=== PATIENT | male | born 1950 | race Caucasian/White ===

== ENCOUNTER 2021-10-15 13:02 | Inpatient (IN) ==
[2021-10-15 16:32] LABS: INR 1.2; Prothrombin Time 13.4 Seconds (9.4-12.1)
[2021-10-15 16:35] LABS: Activated Partial Thrombo Time 29.5 Seconds (26.0-36.0)
[2021-10-15 16:44] LABS: Albumin 4.4 g/dL (3.5-5.7); Albumin/Globulin Ratio 1.6 (1.1-2.2); Bilirubin,Direct 2.6 mg/dL (0.0-0.2); Bilirubin,Total 3.6 mg/dL (0.3-1.0); Globulin 2.7 g/dL (2.4-3.5); Total Protein 7.1 g/dL (6.4-8.9)
[2021-10-15] MEDS ORDERED: Acetaminophen 325 MG TABLET PO PRN (17:18)
[2021-10-15] MEDS ORDERED: Ondansetron 4 MG/2 ML VIAL IVP PRN (17:18)
[2021-10-15] MEDS ORDERED: Naloxone 0.4 MG/ML INJ IVP PRN (17:18)
[2021-10-15] MEDS ORDERED: Dextrose Gel 15 GM/37.5 ML TUBE PO PRN ×2 (19:11)
[2021-10-15] MEDS ORDERED: D5% in Water 1,000 ML IVC PRN (19:11)
[2021-10-15] MEDS ORDERED: *HR* Dextrose 50 % in Water (Syg) 50 ML SYRINGE IVP PRN (19:11)
[2021-10-15] MEDS: 0.9 % Sodium Chloride 1,000 ML IVC SCH ×2 (20:21→22:40)
[2021-10-15] MEDS: Piperacillin/Tazobactam 3.375 GM in 0.9 % Sodium Chloride Mini Bag 100 ML IVPB SCH (20:21)
[2021-10-15] MEDS: Insulin LISPRO 300 UNITS/3 ML VIAL SUBQ SCH ×2 (20:31→21:47)
[2021-10-16] MEDS: Piperacillin/Tazobactam 3.375 GM in 0.9 % Sodium Chloride Mini Bag 100 ML IVPB SCH ×3 (04:27→21:24)
[2021-10-16] MEDS: *HR* Enoxaparin 40 MG/0.4 ML SYRINGE SQ SCH (06:36)
[2021-10-16] MEDS: Insulin LISPRO 300 UNITS/3 ML VIAL SUBQ SCH ×4 (08:44→21:25)
[2021-10-16] MEDS: 0.9 % Sodium Chloride 1,000 ML IVC SCH ×2 (09:04→21:25)
[2021-10-16 10:27] LABS: Basophils % 0.3 %; Hematocrit 36.6 % (37.5-50.1); Hemoglobin 11.9 g/dL (12.9-16.9); Immature Granulocytes % 0.6 % (0-4); Lymphocytes # 0.4 K/mcL (0.6-4.6); Lymphocytes % 3.3 %; Mean Corpuscular HGB Conc 32.5 g/dL (31.6-35.5); Mean Corpuscular Hemoglobin 31.4 pg (28.0-33.3); Mean Corpuscular Volume 96.6 fL (83.0-100.0); Mean Platelet Volume 11.1 fL (9.4-12.4); Monocytes # 0.6 K/mcL (0.0-1.3); Monocytes % 5.3 %; Platelet Count 135 K/mcL (140-400); Red Blood Count 3.79 M/mcL (4.19-5.50); Red Cell Distribution Width 13.6 % (11.5-14.5); Segmented Neutrophils % 90.5 %
[2021-10-16 10:35] LABS: INR 1.4; Neutrophils # 10.9 K/mcL (1.6-8.9); Prothrombin Time 15.2 Seconds (9.4-12.1)
[2021-10-16 10:36] LABS: Alanine Aminotransferase 249 Units/L (7-52); Albumin 3.7 g/dL (3.5-5.7); Albumin/Globulin Ratio 1.5 (1.1-2.2); Alkaline Phosphatase 238 Units/L (34-104); Aspartate Amino Transferase 122 Units/L (13-39); BUN/Creatinine Ratio 13 (6-26); Bilirubin,Direct 2.7 mg/dL (0.0-0.2); Bilirubin,Indirect 1.2 mg/dL (0.0-1.0); Bilirubin,Total 3.9 mg/dL (0.3-1.0); Blood Urea Nitrogen 16 mg/dL (8-23); Calcium 9.1 mg/dL (8.6-10.3); Carbon Dioxide 27 mEq/L (23-29); Chloride 98 mEq/L (98-107); Globulin 2.5 g/dL (2.4-3.5); Glucose 212 mg/dL (70-105); Magnesium 1.8 mg/dL (1.6-2.6); Osmolality,Calculated 283 (280-300); Potassium 3.8 mEq/L (3.5-5.1); Sodium 133 mEq/L (136-145); Total Protein 6.2 g/dL (6.4-8.9); eGFR For African Americans > 60 (> 60); eGFR For Non-African Americans 59 (> 60)
[2021-10-16 11:47] LABS: Platelet Estimate Slight Decrease (Normal)
[2021-10-16] MEDS: Cyanocobalamin (B-12) 1,000 MCG TABLET PO SCH (12:25)
[2021-10-16] MEDS ORDERED: Acetaminophen IV 500 MG/50 ML BAG IVPB ONE (15:44)
[2021-10-16] MEDS: Vancomycin 1,500 MG/265 ML IV.SOLN IVPB SCH (18:46)
[2021-10-16] MEDS: Mirtazapine 15 MG TABLET PO SCH (21:24)
[2021-10-17 02:16] LABS: Basophils % 0.2 %
[2021-10-17 02:18] LABS: Hematocrit 36.1 % (37.5-50.1); Immature Granulocytes % 1.1 % (0-4); Immature Platelets 6.9 % (1.1-6.1); Lymphocytes # 0.4 K/mcL (0.6-4.6); Lymphocytes % 3.2 %; Mean Corpuscular HGB Conc 33.2 g/dL (31.6-35.5); Mean Corpuscular Hemoglobin 31.8 pg (28.0-33.3); Mean Corpuscular Volume 95.8 fL (83.0-100.0); Mean Platelet Volume 11.3 fL (9.4-12.4); Monocytes # 0.6 K/mcL (0.0-1.3); Monocytes % 4.5 %; Neutrophils # 11.8 K/mcL (1.6-8.9); Platelet Count 124 K/mcL (140-400); Red Blood Count 3.77 M/mcL (4.19-5.50); Red Cell Distribution Width 13.5 % (11.5-14.5)
[2021-10-17 02:26] LABS: INR 1.3; Prothrombin Time 14.2 Seconds (9.4-12.1)
[2021-10-17 02:34] LABS: Alanine Aminotransferase 162 Units/L (7-52); Albumin 3.5 g/dL (3.5-5.7); Albumin/Globulin Ratio 1.3 (1.1-2.2); Alkaline Phosphatase 225 Units/L (34-104); Aspartate Amino Transferase 50 Units/L (13-39); BUN/Creatinine Ratio 12 (6-26); Bilirubin,Direct 3.1 mg/dL (0.0-0.2); Bilirubin,Indirect 1.7 mg/dL (0.0-1.0); Bilirubin,Total 4.8 mg/dL (0.3-1.0); Blood Urea Nitrogen 13 mg/dL (8-23); Calcium 8.7 mg/dL (8.6-10.3); Carbon Dioxide 23 mEq/L (23-29); Chloride 100 mEq/L (98-107); Globulin 2.6 g/dL (2.4-3.5); Glucose 185 mg/dL (70-105); Osmolality,Calculated 277 (280-300); Potassium 3.5 mEq/L (3.5-5.1); Sodium 131 mEq/L (136-145); Total Protein 6.1 g/dL (6.4-8.9); eGFR For African Americans > 60 (> 60); eGFR For Non-African Americans > 60 (> 60)
[2021-10-17] MEDS: Piperacillin/Tazobactam 3.375 GM in 0.9 % Sodium Chloride Mini Bag 100 ML IVPB SCH ×3 (04:36→20:03)
[2021-10-17] MEDS: 0.9 % Sodium Chloride 1,000 ML IVC SCH (07:20)
[2021-10-17] MEDS: Insulin LISPRO 300 UNITS/3 ML VIAL SUBQ SCH ×4 (07:41→20:04)
[2021-10-17] MEDS: Cyanocobalamin (B-12) 1,000 MCG TABLET PO SCH (09:35)
[2021-10-17] MEDS ORDERED: atenoloL 50 MG TABLET PO SCH (12:00)
[2021-10-17] MEDS ORDERED: amLODIPine 5 MG TABLET PO SCH (12:00)
[2021-10-17] MEDS ORDERED: *HR* FentaNYL (PF) 100 MCG/2 ML VIAL ONE (13:44)
[2021-10-17] MEDS ORDERED: *HR* FentaNYL (PF) 100 MCG/2 ML VIAL IVP ONE (13:46)
[2021-10-17] MEDS: atenoloL 50 MG TABLET PO SCH (16:59)
[2021-10-17] MEDS: Vancomycin 1,500 MG/265 ML IV.SOLN IVPB SCH (16:59)
[2021-10-17] MEDS: Morphine Sulfate 2 MG/ML SYRINGE IVP PRN ×2 (19:25→23:51)
[2021-10-17] MEDS: Mirtazapine 15 MG TABLET PO SCH (20:04)
[2021-10-17] MEDS: Magnesium Oxide 400 MG TABLET PO SCH (20:04)
[2021-10-18] MEDS: Piperacillin/Tazobactam 3.375 GM in 0.9 % Sodium Chloride Mini Bag 100 ML IVPB SCH ×3 (03:16→20:04)
[2021-10-18 05:19] LABS: Basophils % 0.3 %; Eosinophils # 0.1 K/mcL (0.0-0.6); Eosinophils % 1.3 %; Hematocrit 34.1 % (37.5-50.1); Hemoglobin 10.8 g/dL (12.9-16.9); Immature Granulocytes % 0.8 % (0-4); Lymphocytes # 0.6 K/mcL (0.6-4.6); Lymphocytes % 7.2 %; Mean Corpuscular HGB Conc 31.7 g/dL (31.6-35.5); Mean Corpuscular Hemoglobin 30.9 pg (28.0-33.3); Mean Corpuscular Volume 97.7 fL (83.0-100.0); Mean Platelet Volume 11.5 fL (9.4-12.4); Monocytes # 0.7 K/mcL (0.0-1.3); Monocytes % 7.7 %; Neutrophils # 7.2 K/mcL (1.6-8.9); Platelet Count 138 K/mcL (140-400); Red Blood Count 3.49 M/mcL (4.19-5.50); Red Cell Distribution Width 13.9 % (11.5-14.5); Segmented Neutrophils % 82.7 %; White Blood Count 8.8 K/mcL (4.3-11.1)
[2021-10-18 05:26] LABS: INR 1.1; Prothrombin Time 12.4 Seconds (9.4-12.1)
[2021-10-18 05:40] LABS: Alanine Aminotransferase 93 Units/L (7-52); Albumin 3.2 g/dL (3.5-5.7); Albumin/Globulin Ratio 1.2 (1.1-2.2); Alkaline Phosphatase 168 Units/L (34-104); Aspartate Amino Transferase 17 Units/L (13-39); BUN/Creatinine Ratio 14 (6-26); Bilirubin,Direct 0.8 mg/dL (0.0-0.2); Bilirubin,Indirect 0.7 mg/dL (0.0-1.0); Bilirubin,Total 1.5 mg/dL (0.3-1.0); Blood Urea Nitrogen 14 mg/dL (8-23); Calcium 8.4 mg/dL (8.6-10.3); Carbon Dioxide 26 mEq/L (23-29); Chloride 104 mEq/L (98-107); Globulin 2.7 g/dL (2.4-3.5); Glucose 112 mg/dL (70-105); Osmolality,Calculated 287 (280-300); Potassium 3.2 mEq/L (3.5-5.1); Sodium 138 mEq/L (136-145); Total Protein 5.9 g/dL (6.4-8.9); eGFR For African Americans > 60 (> 60); eGFR For Non-African Americans > 60 (> 60)
[2021-10-18] MEDS: Magnesium Oxide 400 MG TABLET PO SCH ×2 (07:50→20:06)
[2021-10-18] MEDS: Cyanocobalamin (B-12) 1,000 MCG TABLET PO SCH (07:50)
[2021-10-18] MEDS: Insulin LISPRO 300 UNITS/3 ML VIAL SUBQ SCH ×4 (07:51→20:09)
[2021-10-18] MEDS: atenoloL 50 MG TABLET PO SCH (07:53)
[2021-10-18 08:36] LABS: Hepatitis B Surface Antigen Nonreactive (Nonreactive)
[2021-10-18] MEDS ORDERED: *HR* FentaNYL PATCH 25 MCG PATCH TD PRN (09:00)
[2021-10-18 09:05] LABS: Hepatitis A Antibody IgM Nonreactive (Nonreactive)
[2021-10-18 09:06] LABS: Hepatitis B Core IgM Nonreactive (Nonreactive)
[2021-10-18 09:07] LABS: Hepatitis C Virus Antibody Nonreactive (Nonreactive)
[2021-10-18] MEDS: amLODIPine 5 MG TABLET PO SCH (12:00)
[2021-10-18] MEDS: Vancomycin 1,500 MG/265 ML IV.SOLN IVPB SCH (18:27)
[2021-10-18] MEDS: Mirtazapine 15 MG TABLET PO SCH (20:06)
[2021-10-19] MEDS: Morphine Sulfate 2 MG/ML SYRINGE IVP PRN (00:17)
[2021-10-19 01:27] LABS: Basophils % 0.5 %; Eosinophils # 0.2 K/mcL (0.0-0.6); Eosinophils % 2.7 %; Hematocrit 35.3 % (37.5-50.1); Hemoglobin 11.1 g/dL (12.9-16.9); Immature Granulocytes % 0.5 % (0-4); Lymphocytes # 0.8 K/mcL (0.6-4.6); Lymphocytes % 13.3 %; Mean Corpuscular HGB Conc 31.4 g/dL (31.6-35.5); Mean Corpuscular Hemoglobin 31.2 pg (28.0-33.3); Mean Corpuscular Volume 99.2 fL (83.0-100.0); Mean Platelet Volume 11.1 fL (9.4-12.4); Monocytes # 0.5 K/mcL (0.0-1.3); Monocytes % 8.4 %; Neutrophils # 4.7 K/mcL (1.6-8.9); Platelet Count 150 K/mcL (140-400); Red Blood Count 3.56 M/mcL (4.19-5.50); Red Cell Distribution Width 13.7 % (11.5-14.5); Segmented Neutrophils % 74.6 %; White Blood Count 6.3 K/mcL (4.3-11.1)
[2021-10-19 01:35] LABS: Prothrombin Time 11.6 Seconds (9.4-12.1)
[2021-10-19 01:42] LABS: Alanine Aminotransferase 73 Units/L (7-52); Albumin 3.3 g/dL (3.5-5.7); Albumin/Globulin Ratio 1.1 (1.1-2.2); Alkaline Phosphatase 150 Units/L (34-104); Aspartate Amino Transferase 18 Units/L (13-39); BUN/Creatinine Ratio 13 (6-26); Bilirubin,Direct 0.5 mg/dL (0.0-0.2); Bilirubin,Indirect 0.6 mg/dL (0.0-1.0); Bilirubin,Total 1.1 mg/dL (0.3-1.0); Blood Urea Nitrogen 14 mg/dL (8-23); Calcium 8.5 mg/dL (8.6-10.3); Carbon Dioxide 26 mEq/L (23-29); Chloride 106 mEq/L (98-107); Glucose 137 mg/dL (70-105); Osmolality,Calculated 287 (280-300); Potassium 3.7 mEq/L (3.5-5.1); Sodium 137 mEq/L (136-145); Total Protein 6.3 g/dL (6.4-8.9); eGFR For African Americans > 60 (> 60); eGFR For Non-African Americans > 60 (> 60)
[2021-10-19] MEDS: Piperacillin/Tazobactam 3.375 GM in 0.9 % Sodium Chloride Mini Bag 100 ML IVPB SCH ×3 (04:36→20:14)
[2021-10-19] MEDS ORDERED: Vancomycin 1,250 MG/262.5 ML IV.SOLN IVPB SCH ×2 (07:00→18:00)
[2021-10-19] MEDS: Cyanocobalamin (B-12) 1,000 MCG TABLET PO SCH (08:04)
[2021-10-19] MEDS: amLODIPine 5 MG TABLET PO SCH (08:04)
[2021-10-19] MEDS: Magnesium Oxide 400 MG TABLET PO SCH ×2 (08:04→20:14)
[2021-10-19] MEDS: atenoloL 50 MG TABLET PO SCH (08:04)
[2021-10-19] MEDS: Insulin LISPRO 300 UNITS/3 ML VIAL SUBQ SCH ×4 (08:04→20:14)
[2021-10-19] MEDS: Mirtazapine 15 MG TABLET PO SCH (20:14)
[2021-10-20] MEDS: Piperacillin/Tazobactam 3.375 GM in 0.9 % Sodium Chloride Mini Bag 100 ML IVPB SCH (04:03)
[2021-10-20 04:44] LABS: Basophils % 0.7 %; Eosinophils # 0.3 K/mcL (0.0-0.6); Eosinophils % 4.6 %; Hematocrit 33.9 % (37.5-50.1); Hemoglobin 10.7 g/dL (12.9-16.9); Immature Granulocytes % 0.2 % (0-4); Lymphocytes # 1.1 K/mcL (0.6-4.6); Lymphocytes % 18.5 %; Mean Corpuscular HGB Conc 31.6 g/dL (31.6-35.5); Mean Corpuscular Hemoglobin 30.9 pg (28.0-33.3); Mean Platelet Volume 10.7 fL (9.4-12.4); Monocytes # 0.6 K/mcL (0.0-1.3); Monocytes % 10.5 %; Platelet Count 141 K/mcL (140-400); Red Blood Count 3.46 M/mcL (4.19-5.50); Red Cell Distribution Width 13.9 % (11.5-14.5); Segmented Neutrophils % 65.5 %; White Blood Count 6.1 K/mcL (4.3-11.1)
[2021-10-20 05:02] LABS: Alanine Aminotransferase 56 Units/L (7-52); Albumin 3.2 g/dL (3.5-5.7); Albumin/Globulin Ratio 1.2 (1.1-2.2); Alkaline Phosphatase 139 Units/L (34-104); Aspartate Amino Transferase 20 Units/L (13-39); BUN/Creatinine Ratio 12 (6-26); Bilirubin,Direct 0.3 mg/dL (0.0-0.2); Bilirubin,Indirect 0.6 mg/dL (0.0-1.0); Bilirubin,Total 0.9 mg/dL (0.3-1.0); Blood Urea Nitrogen 11 mg/dL (8-23); Calcium 8.2 mg/dL (8.6-10.3); Carbon Dioxide 26 mEq/L (23-29); Chloride 105 mEq/L (98-107); Globulin 2.7 g/dL (2.4-3.5); Glucose 132 mg/dL (70-105); Magnesium 1.9 mg/dL (1.6-2.6); Osmolality,Calculated 285 (280-300); Potassium 3.4 mEq/L (3.5-5.1); Sodium 137 mEq/L (136-145); Total Protein 5.9 g/dL (6.4-8.9); eGFR For African Americans > 60 (> 60); eGFR For Non-African Americans > 60 (> 60)
[2021-10-20] MEDS ORDERED: Ertapenem 1,000 MG in 0.9 % Sodium Chloride Mini Bag 100 ML IVPB SCH (09:00)
[2021-10-20] MEDS: Cyanocobalamin (B-12) 1,000 MCG TABLET PO SCH (09:32)
[2021-10-20] MEDS: Magnesium Oxide 400 MG TABLET PO SCH (09:32)
[2021-10-20] MEDS: Insulin LISPRO 300 UNITS/3 ML VIAL SUBQ SCH (09:32)
[2021-10-20] MEDS: amLODIPine 5 MG TABLET PO SCH (09:32)
[2021-10-20] MEDS: *HR* Enoxaparin 40 MG/0.4 ML SYRINGE SQ SCH (09:32)
[2021-10-20] MEDS: atenoloL 50 MG TABLET PO SCH (09:32)
[2021-10-20 16:43] VITALS: BP 134/78; PULSE 83; TEMP 98.1; O2SAT 98
== END 2021-10-20 16:30 | disposition home health service (06) | DRG 871 ==
LOC: EMEROOARM 13:02 → 4WAOSI 13:02 → SUATTDRO 17:53 → 4WAOSI 18:01
PROVIDERS: ADMIT Pharmacist; ATTEND Pharmacist
PROC: IRFLUID (2021-10-17 12:00)

== ENCOUNTER 2021-11-29 11:18 | Inpatient (IN) ==
[2021-11-29] MEDS ORDERED: Naloxone 0.4 MG/ML INJ IVP PRN (15:01)
[2021-11-29] MEDS ORDERED: Ondansetron 4 MG/2 ML VIAL IVP PRN (15:01)
[2021-11-29] MEDS ORDERED: Acetaminophen 325 MG TABLET PO PRN (15:01)
[2021-11-29] MEDS ORDERED: *HR* OxyCODONE/APAP 5/325 TABLET PO PRN (15:03)
[2021-11-29] MEDS ORDERED: D5% in Water 1,000 ML IVC PRN (15:04)
[2021-11-29] MEDS ORDERED: Dextrose 4 GM Chewable Tablets PO PRN ×2 (15:04)
[2021-11-29] MEDS ORDERED: *HR* Dextrose 50 % in Water (Syg) 50 ML SYRINGE IVP PRN (15:04)
[2021-11-29] MEDS: Insulin LISPRO 300 UNITS/3 ML VIAL SUBQ SCH (17:44)
[2021-11-29 18:08] LABS: VBG HCO3 28 mEq/L (21-27); VBG PCO2 51 mmHg (41-51); VBG PH 7.35 pH Units (7.32-7.42); VBG PO2 30 mmHg (25-50)
[2021-11-29] MEDS: Mirtazapine 15 MG TABLET PO SCH (21:00)
[2021-11-30] MEDS ORDERED: *HR* LORazepam 1 MG TABLET PO ONE (00:07)
[2021-11-30 04:05] LABS: Basophils % 0.2 %; Hemoglobin 13.5 g/dL (12.9-16.9); Immature Granulocytes % 0.4 % (0-4); Mean Corpuscular Volume 94.2 fL (83.0-100.0)
[2021-11-30 04:07] LABS: Eosinophils # 0.1 K/mcL (0.0-0.6); Eosinophils % 2.4 %; Hematocrit 40.9 % (37.5-50.1); Immature Platelets 9.9 % (1.1-6.1); Lymphocytes # 0.7 K/mcL (0.6-4.6); Mean Corpuscular Hemoglobin 31.1 pg (28.0-33.3); Mean Platelet Volume 11.9 fL (9.4-12.4); Monocytes # 0.3 K/mcL (0.0-1.3); Monocytes % 5.7 %; Red Blood Count 4.34 M/mcL (4.19-5.50); Red Cell Distribution Width 13.8 % (11.5-14.5); Segmented Neutrophils % 75.3 %; White Blood Count 4.6 K/mcL (4.3-11.1)
[2021-11-30 04:10] LABS: Neutrophils # 3.5 K/mcL (1.6-8.9); Platelet Count 62 K/mcL (140-400)
[2021-11-30 04:28] LABS: BUN/Creatinine Ratio 23 (6-26); Blood Urea Nitrogen 26 mg/dL (8-23); Calcium 8.7 mg/dL (8.6-10.3); Carbon Dioxide 25 mEq/L (23-29); Chloride 98 mEq/L (98-107); Glucose 212 mg/dL (70-105); Magnesium 1.8 mg/dL (1.6-2.6); Osmolality,Calculated 285 (280-300); Phosphorous 2.3 mg/dL (2.7-4.5); Potassium 4.2 mEq/L (3.5-5.1); Sodium 132 mEq/L (136-145); eGFR For African Americans > 60 (> 60); eGFR For Non-African Americans > 60 (> 60)
[2021-11-30] MEDS: Cyanocobalamin (B-12) 1,000 MCG TABLET PO SCH (08:20)
[2021-11-30] MEDS: lisinopriL 10 MG TABLET PO SCH (08:21)
[2021-11-30] MEDS: LENVATINIB MESYLATE PO SCH (08:21)
[2021-11-30] MEDS: LENVATINIB MESYLATE 4 MG PO SCH (08:21)
[2021-11-30] MEDS: EVEROLIMUS 5 MG PO SCH (08:22)
[2021-11-30] MEDS: *HR* FentaNYL PATCH 25 MCG PATCH TD PRN (08:43)
[2021-11-30] MEDS ORDERED: Patient Taking Own Medication 1 EACH PO SCH (09:00)
[2021-11-30] MEDS ORDERED: LENVATINIB MESYLATE PO SCH (09:00)
[2021-11-30] MEDS: Insulin LISPRO 300 UNITS/3 ML VIAL SUBQ SCH ×3 (14:02→17:56)
[2021-11-30 17:21] LABS: Bacteria,Urine Few per hpf (None-Few); Bilirubin,Urine Negative (Negative); Blood,Urine Small (Negative); Clarity,Urine Clear (Clear); Color,Urine Yellow (Yellow); Glucose,Urine (UA) >=1000 mg/dL (Normal); Ketones,Urine Negative (Negative); Leukocyte Esterase,Urine Small (Negative); Mucus,Urine Few per lpf (None-Few); Nitrite,Urine Negative (Negative); Protein,Urine 100 mg/dL (Neg-Trace); Specific Gravity,Urine 1.019 (1.010-1.025); Urobilinogen,Urine Normal (Normal)
[2021-11-30] MEDS ORDERED: ChlorproMAZINE 25 MG/ML AMPUL IM ONE (17:47)
[2021-11-30] MEDS: Piperacillin/Tazobactam 3.375 GM in 0.9 % Sodium Chloride Mini Bag 100 ML IVPB SCH (17:57)
[2021-11-30] MEDS: Mirtazapine 15 MG TABLET PO SCH (21:06)
[2021-12-01] MEDS: Piperacillin/Tazobactam 3.375 GM in 0.9 % Sodium Chloride Mini Bag 100 ML IVPB SCH ×3 (01:54→17:26)
[2021-12-01 05:10] LABS: Hematocrit 40.6 % (37.5-50.1); Mean Corpuscular Volume 93.1 fL (83.0-100.0); Red Blood Count 4.36 M/mcL (4.19-5.50)
[2021-12-01 05:12] LABS: Basophils % 0.4 %; Eosinophils # 0.1 K/mcL (0.0-0.6); Eosinophils % 1.3 %; Hemoglobin 13.3 g/dL (12.9-16.9); Immature Granulocytes % 0.2 % (0-4); Immature Platelets 8.9 % (1.1-6.1); Lymphocytes # 0.5 K/mcL (0.6-4.6); Lymphocytes % 10.9 %; Mean Corpuscular HGB Conc 32.8 g/dL (31.6-35.5); Mean Corpuscular Hemoglobin 30.5 pg (28.0-33.3); Mean Platelet Volume 11.9 fL (9.4-12.4); Monocytes # 0.3 K/mcL (0.0-1.3); Monocytes % 5.4 %; Neutrophils # 3.9 K/mcL (1.6-8.9); Segmented Neutrophils % 81.8 %; White Blood Count 4.8 K/mcL (4.3-11.1)
[2021-12-01 05:15] LABS: Platelet Count 68 K/mcL (140-400)
[2021-12-01 05:28] LABS: Alanine Aminotransferase 36 Units/L (7-52); Albumin/Globulin Ratio 0.9 (1.1-2.2); Alkaline Phosphatase 123 Units/L (34-104); Aspartate Amino Transferase 34 Units/L (13-39); BUN/Creatinine Ratio 19 (6-26); Bilirubin,Direct 0.2 mg/dL (0.0-0.2); Bilirubin,Indirect 0.5 mg/dL (0.0-1.0); Bilirubin,Total 0.7 mg/dL (0.3-1.0); Blood Urea Nitrogen 23 mg/dL (8-23); Calcium 8.2 mg/dL (8.6-10.3); Carbon Dioxide 22 mEq/L (23-29); Chloride 100 mEq/L (98-107); Globulin 3.3 g/dL (2.4-3.5); Glucose 169 mg/dL (70-105); Magnesium 1.7 mg/dL (1.6-2.6); Osmolality,Calculated 290 (280-300); Potassium 3.8 mEq/L (3.5-5.1); Sodium 136 mEq/L (136-145); Total Protein 6.3 g/dL (6.4-8.9); eGFR For African Americans > 60 (> 60); eGFR For Non-African Americans 59 (> 60)
[2021-12-01] MEDS: *HR* Enoxaparin 40 MG/0.4 ML SYRINGE SQ SCH (06:03)
[2021-12-01] MEDS ORDERED: *HR* OxyCODONE Immed Rel 15 MG TABLET PO PRN (07:43)
[2021-12-01] MEDS ORDERED: Gabapentin 100 MG CAPSULE PO PRN (07:43)
[2021-12-01] MEDS: Cyanocobalamin (B-12) 1,000 MCG TABLET PO SCH (07:48)
[2021-12-01] MEDS: Insulin LISPRO 300 UNITS/3 ML VIAL SUBQ SCH ×3 (07:48→17:20)
[2021-12-01] MEDS: lisinopriL 10 MG TABLET PO SCH (07:48)
[2021-12-01] MEDS: LENVATINIB MESYLATE PO SCH (07:49)
[2021-12-01] MEDS: EVEROLIMUS 5 MG PO SCH (07:49)
[2021-12-01] MEDS: Magnesium Oxide 400 MG TABLET PO SCH (09:23)
[2021-12-01] MEDS: amLODIPine 5 MG TABLET PO SCH (09:23)
[2021-12-01] MEDS: Lactobacillus 1 EACH CAP.SPRINK PO SCH ×2 (09:23→21:17)
[2021-12-01] MEDS: atenoloL 50 MG TABLET PO SCH (09:23)
[2021-12-01] MEDS: LENVATINIB MESYLATE 4 MG PO SCH (09:24)
[2021-12-01] MEDS: chlorproMAZINE 25 MG TABLET PO SCH (18:36)
[2021-12-01] MEDS: Mirtazapine 15 MG TABLET PO SCH (21:17)
[2021-12-02] MEDS: Piperacillin/Tazobactam 3.375 GM in 0.9 % Sodium Chloride Mini Bag 100 ML IVPB SCH ×3 (02:37→17:18)
[2021-12-02 05:28] LABS: Basophils % 0.2 %; Immature Granulocytes % 0.5 % (0-4)
[2021-12-02 05:30] LABS: Hematocrit 43.1 % (37.5-50.1); Hemoglobin 14.2 g/dL (12.9-16.9); Immature Platelets 9.3 % (1.1-6.1); Lymphocytes # 0.6 K/mcL (0.6-4.6); Lymphocytes % 13.9 %; Mean Corpuscular HGB Conc 32.9 g/dL (31.6-35.5); Mean Corpuscular Hemoglobin 31.1 pg (28.0-33.3); Mean Corpuscular Volume 94.3 fL (83.0-100.0); Monocytes # 0.1 K/mcL (0.0-1.3); Monocytes % 1.9 %; Neutrophils # 3.4 K/mcL (1.6-8.9); Red Blood Count 4.57 M/mcL (4.19-5.50); Red Cell Distribution Width 13.4 % (11.5-14.5); Segmented Neutrophils % 83.5 %; White Blood Count 4.1 K/mcL (4.3-11.1)
[2021-12-02 05:39] LABS: Platelet Count 79 K/mcL (140-400)
[2021-12-02 05:47] LABS: Alanine Aminotransferase 42 Units/L (7-52); Albumin 3.3 g/dL (3.5-5.7); Albumin/Globulin Ratio 0.9 (1.1-2.2); Alkaline Phosphatase 134 Units/L (34-104); Aspartate Amino Transferase 30 Units/L (13-39); BUN/Creatinine Ratio 20 (6-26); Bilirubin,Direct 0.1 mg/dL (0.0-0.2); Bilirubin,Indirect 0.5 mg/dL (0.0-1.0); Bilirubin,Total 0.6 mg/dL (0.3-1.0); Blood Urea Nitrogen 25 mg/dL (8-23); Calcium 8.4 mg/dL (8.6-10.3); Carbon Dioxide 26 mEq/L (23-29); Chloride 99 mEq/L (98-107); Globulin 3.8 g/dL (2.4-3.5); Glucose 210 mg/dL (70-105); Magnesium 1.9 mg/dL (1.6-2.6); Osmolality,Calculated 293 (280-300); Sodium 136 mEq/L (136-145); Total Protein 7.1 g/dL (6.4-8.9); eGFR For African Americans > 60 (> 60); eGFR For Non-African Americans 57 (> 60)
[2021-12-02] MEDS: *HR* Enoxaparin 40 MG/0.4 ML SYRINGE SQ SCH (05:48)
[2021-12-02] MEDS: Magnesium Oxide 400 MG TABLET PO SCH (09:26)
[2021-12-02] MEDS: lisinopriL 10 MG TABLET PO SCH (09:26)
[2021-12-02] MEDS: atenoloL 50 MG TABLET PO SCH (09:26)
[2021-12-02] MEDS: Cyanocobalamin (B-12) 1,000 MCG TABLET PO SCH (09:26)
[2021-12-02] MEDS: chlorproMAZINE 25 MG TABLET PO SCH ×2 (09:26→22:14)
[2021-12-02] MEDS: Lactobacillus 1 EACH CAP.SPRINK PO SCH ×2 (09:27→22:14)
[2021-12-02] MEDS: amLODIPine 5 MG TABLET PO SCH (09:27)
[2021-12-02] MEDS: Insulin LISPRO 300 UNITS/3 ML VIAL SUBQ SCH ×3 (10:27→17:18)
[2021-12-02] MEDS ORDERED: Ringers Solution, Lactated 1,000 ML IVC ONE (11:08)
[2021-12-02] MEDS: Insulin DETEMIR 100 UNIT/ML X5UNITS SUBQ SCH ×2 (13:00→22:16)
[2021-12-02] MEDS ORDERED: Ringers Solution, Lactated 1,000 ML ONE (17:01)
[2021-12-02] MEDS: Mirtazapine 15 MG TABLET PO SCH (22:14)
[2021-12-03] MEDS: Piperacillin/Tazobactam 3.375 GM in 0.9 % Sodium Chloride Mini Bag 100 ML IVPB SCH ×2 (02:44→09:54)
[2021-12-03 07:23] LABS: Basophils % 0.2 %; Hematocrit 40.9 % (37.5-50.1); Hemoglobin 13.9 g/dL (12.9-16.9); Immature Granulocytes % 0.7 % (0-4); Immature Platelets 9.5 % (1.1-6.1); Lymphocytes # 0.7 K/mcL (0.6-4.6); Lymphocytes % 15.1 %; Mean Corpuscular Hemoglobin 31.2 pg (28.0-33.3); Mean Corpuscular Volume 91.7 fL (83.0-100.0); Mean Platelet Volume 11.5 fL (9.4-12.4); Monocytes # 0.1 K/mcL (0.0-1.3); Neutrophils # 3.8 K/mcL (1.6-8.9); Red Blood Count 4.46 M/mcL (4.19-5.50); White Blood Count 4.6 K/mcL (4.3-11.1)
[2021-12-03 07:26] LABS: Platelet Count 78 K/mcL (140-400)
[2021-12-03] MEDS: *HR* Enoxaparin 40 MG/0.4 ML SYRINGE SQ SCH (07:35)
[2021-12-03 07:45] LABS: Alanine Aminotransferase 34 Units/L (7-52); Albumin/Globulin Ratio 0.9 (1.1-2.2); Alkaline Phosphatase 99 Units/L (34-104); Aspartate Amino Transferase 22 Units/L (13-39); BUN/Creatinine Ratio 20 (6-26); Bilirubin,Direct 0.1 mg/dL (0.0-0.2); Bilirubin,Indirect 0.3 mg/dL (0.0-1.0); Bilirubin,Total 0.4 mg/dL (0.3-1.0); Blood Urea Nitrogen 21 mg/dL (8-23); Calcium 7.6 mg/dL (8.6-10.3); Carbon Dioxide 27 mEq/L (23-29); Chloride 101 mEq/L (98-107); Globulin 3.2 g/dL (2.4-3.5); Glucose 160 mg/dL (70-105); Osmolality,Calculated 288 (280-300); Potassium 3.7 mEq/L (3.5-5.1); Sodium 136 mEq/L (136-145); Total Protein 6.2 g/dL (6.4-8.9); eGFR For African Americans > 60 (> 60); eGFR For Non-African Americans > 60 (> 60)
[2021-12-03] MEDS: chlorproMAZINE 25 MG TABLET PO SCH (08:01)
[2021-12-03] MEDS: Cyanocobalamin (B-12) 1,000 MCG TABLET PO SCH (08:02)
[2021-12-03] MEDS: Lactobacillus 1 EACH CAP.SPRINK PO SCH (08:04)
[2021-12-03] MEDS: Magnesium Oxide 400 MG TABLET PO SCH (08:05)
[2021-12-03] MEDS: Insulin LISPRO 300 UNITS/3 ML VIAL SUBQ SCH ×2 (08:06→11:51)
[2021-12-03] MEDS: Insulin DETEMIR 100 UNIT/ML X5UNITS SUBQ SCH (08:10)
[2021-12-03] MEDS ORDERED: lisinopriL 5 MG TABLET PO SCH (09:00)
[2021-12-03] MEDS ORDERED: atenoloL 50 MG TABLET PO SCH (09:00)
[2021-12-03] MEDS ORDERED: Gadolinium Contrast Agent (WT Based) IV PRN (10:15)
[2021-12-03] MEDS: *HR* FentaNYL PATCH 25 MCG PATCH TD PRN (11:02)
[2021-12-03 11:16] VITALS: BP 109/73; PULSE 73; O2SAT 97
[2021-12-03] MEDS ORDERED: *HR* LORazepam 2 MG/ML VIAL IVP ONE (11:33)
[2021-12-03 13:16] VITALS: TEMP 97.7
== END 2021-12-03 18:20 | disposition home health service (06) | DRG 872 ==
LOC: 4WAOSI → SUATTDRO 11-30 12:27
PROVIDERS: ADMIT Hospitalist; ATTEND Pharmacist